=== PATIENT | male | born 1940 | race Hispanic/Latino ===

== ENCOUNTER → 2018-10-04 | Outpatient (CLI) | payer OTHER ==
[~2018-10-04] MED LIST: LACT10SO PO; MIDO10TA PO; SIMV40TA59 PO
== END | disposition home or self-care (01) ==
LOC: RAH 12:10
PROVIDERS: ATTEND Internal Medicine
DX: J44.9 Chronic obstructive pulmonary disease, unspecified (principal); M47.895 Other spondylosis, thoracolumbar region; J47.9 Bronchiectasis, uncomplicated; J84.10 Pulmonary fibrosis, unspecified; I51.7 Cardiomegaly; Z91.81 History of falling; Z72.89 Other problems related to lifestyle
CPT/HCPCS: 71101

== ENCOUNTER → 2018-12-21 | Outpatient (CLI) | payer OTHER | END | disposition home or self-care (01) | LOC: RAH 13:15 | PROVIDERS: ATTEND Internal Medicine | DX: M47.816 Spondylosis without myelopathy or radiculopathy, lumbar region (principal); M43.5X6 Other recurrent vertebral dislocation, lumbar region | CPT/HCPCS: 72100; 72202 ==

== ENCOUNTER 2020-02-20 14:01 | Inpatient (IN) | payer OTHER ==
[~2020-02-20] VITALS: Ht 167.6 cm; Wt 63.9 kg
[2020-02-20 14:35] LABS: BASOPHILS % (AUTO) 0.1 % (0.0-5.0); EOSINOPHILS % (AUTO) 0.1 % (0.0-8.0); HEMATOCRIT 37.7 % (42-54); LYMPHOCYTES % (AUTO) 9.6 % (21.0-51.0); MEAN CORPUSCULAR HEMOGLOBIN 32.2 pg (27.0-33.0); MEAN CORPUSCULAR HGB CONC 33.2 g/dL (32.0-36.0); MEAN CORPUSCULAR VOLUME 97.2 fL (79-99); MONOCYTES % (AUTO) 8.6 % (3.0-13.0); NEUTROPHILS % (AUTO) 81.1 % (40.0-77.0); PLATELET COUNT (AUTO) 133 K/uL (130-400); RED BLOOD CELL COUNT(AUTO) 3.88 MIL/uL (4.50-6.20); RED CELL DISTRIBUTION WIDTH 13.8 % (11.0-15.5); WHITE BLOOD COUNT (AUTO) 11.1 K/uL (4.8-10.8)
[2020-02-20 14:46] LABS: POTASSIUM 3.9 mmol/L (3.5-5.1)
[2020-02-20 14:47] LABS: PARTIAL THROMBOPLASTIN TIME 23.6 SEC (26.3-35.5)
[2020-02-20 14:50] LABS: ALBUMIN 3.8 g/dL (3.5-5.0); BILIRUBIN,TOTAL 0.9 mg/dL (0.2-1.0)
[2020-02-20 14:56] LABS: INR 0.96 (0.85-1.15); PROTHROMBIN TIME 10.4 SEC (9.6-11.6)
[2020-02-20 15:42] LABS: APPEARANCE,URINE Clear (CLEAR); BILIRUBIN,URINE Negative (NEGATIVE); COLOR,URINE Dark Yellow (YELLOW); GLUCOSE, URINE (UA) Negative (NEGATIVE); KETONES,URINE Negative (NEGATIVE); LEUKOCYTE ESTERASE ,URINE Negative (NEGATIVE); NITRATE,URINE Negative (NEGATIVE); OCCULT BLOOD,URINE Moderate (NEGATIVE); PH,URINE 5.5 (5.0-8.0); PROTEIN,URINE POS 1+ mg/dL (NEGATIVE)
[2020-02-20] MEDS ORDERED: LORAZEPAM 2 MG/ML 1 ML VIAL ONE (16:06)
[2020-02-20 16:16] LABS: BACTERIA,URINE Rare /HPF (None Seen); MUCUS,URINE Few LPF (None Seen); SQUAMOUS EPITHELIAL CELL,UR Rare /HPF (0-2); WBC,URINE 0-1 /HPF (0-1)
[2020-02-20] MEDS ORDERED: ZOSYN 3.375GM+NS 50ML 50 ML IV ONE (16:42)
[2020-02-20] MEDS ORDERED: MORPHINE SULFATE 2 MG/ML 1ML SYG ONE (18:27)
[2020-02-20] MEDS: SODIUM CHLORIDE 0.9% 1000ML 1,000 ML IV SCH (19:54)
[2020-02-20] MEDS ORDERED: MORPHINE SULFATE 2 MG/ML 1ML SYG IV PRN (20:00)
[2020-02-20] MEDS ORDERED: HYDRALAZINE HCL 20 MG/ML VIAL IV PRN (20:00)
[2020-02-20] MEDS ORDERED: ACETAMINOPHEN 325 MG TAB PO PRN ×2 (20:00)
[2020-02-20] MEDS ORDERED: ONDANSETRON HCL 4 MG/2 ML VIAL IV PRN (20:00)
[2020-02-20] MEDS ORDERED: FAMOTIDINE/PF 20 MG/2 ML VIAL IV ONE (21:37)
[2020-02-20 22:38] LABS: % IRON SATURATION 5.5 % (30-44)
[2020-02-20] MEDS ORDERED: ACETAMINOPHEN 650 MG SUPPOSITORY RC ONE (22:44)
[2020-02-20 23:35] VITALS: BP 97/48
[2020-02-20] MEDS: FAMOTIDINE/PF 20 MG/2 ML VIAL IV SCH (23:51)
[2020-02-20] MEDS: ZOSYN 3.375GM+NS 50ML 50 ML IV SCH (23:52)
[2020-02-21] MEDS ORDERED: ACETAMINOPHEN 650 MG SUPPOSITORY RC PRN (01:15)
[2020-02-21 04:00] VITALS: BP 139/66
[2020-02-21 04:10] LABS: BASOPHILS % (AUTO) 0.1 % (0.0-5.0); EOSINOPHILS % (AUTO) 0.1 % (0.0-8.0); HEMATOCRIT 35.7 % (42-54); MEAN CORPUSCULAR HEMOGLOBIN 31.7 pg (27.0-33.0); MEAN CORPUSCULAR HGB CONC 32.5 g/dL (32.0-36.0); MEAN CORPUSCULAR VOLUME 97.5 fL (79-99); MONOCYTES % (AUTO) 9.7 % (3.0-13.0); NEUTROPHILS % (AUTO) 80.6 % (40.0-77.0); PLATELET COUNT (AUTO) 143 K/uL (130-400); RED BLOOD CELL COUNT(AUTO) 3.66 MIL/uL (4.50-6.20); RED CELL DISTRIBUTION WIDTH 13.8 % (11.0-15.5); WHITE BLOOD COUNT (AUTO) 13.6 K/uL (4.8-10.8)
[2020-02-21 04:37] LABS: ALBUMIN 3.5 g/dL (3.5-5.0); BILIRUBIN,TOTAL 0.8 mg/dL (0.2-1.0); POTASSIUM 3.6 mmol/L (3.5-5.1); TOTAL PROTEIN, SERUM 6.5 g/dL (6.0-8.3)
[2020-02-21] MEDS: ZOSYN 3.375GM+NS 50ML 50 ML IV SCH ×3 (05:00→20:01)
[2020-02-21 08:11] VITALS: BP 97/65
[2020-02-21] MEDS ORDERED: OMEP20TA25 PO (08:37)
[2020-02-21] MEDS ORDERED: MIDO10TA PO (08:37)
[2020-02-21] MEDS ORDERED: DULO20CA18 PO (08:39)
[2020-02-21] MEDS ORDERED: TRAZ-185 PO (08:39)
[2020-02-21] MEDS ORDERED: MEMA5TAB7 PO (08:42)
[2020-02-21] MEDS ORDERED: NITR0.4T SL (08:42)
[2020-02-21] MEDS ORDERED: BUSP10TA3 PO (08:42)
[2020-02-21] MEDS ORDERED: ACETAMINOPHEN PO (08:42)
[2020-02-21] MEDS ORDERED: TERB30CR8 TP (08:44)
[2020-02-21] MEDS: FAMOTIDINE/PF 20 MG/2 ML VIAL IV SCH (10:06)
[2020-02-21 11:00] VITALS: BP 109/39
--- NOTE | 2020-02-21 13:29 | NUR ---
INITIAL SW spoke with patient's granddaughter, Daniela Lamar, [phone]. Patient lives with spouse and granddaughter. No home health but has PHC with [facility] X 29 hours a week. Granddaughter and grandson are providers. DME: shower chair. Patient needs assistance with ADL's and does not drive. Patient suffers from dementia. PCP is Dr. Mone Valentine. Pharmacy is [facility] located in [place]. DCP is home. Addendum: 02/21/20 at 1332 by ELVI EMMANUEL SS Amended: Links added.
[2020-02-21] MEDS: SODIUM CHLORIDE 0.9% 1000ML 1,000 ML IV SCH (15:54)
[2020-02-21 16:00] VITALS: BP 141/72
[2020-02-21 20:28] VITALS: BP 120/86
[2020-02-22] VITALS (24 sets, daily range): BP systolic 93–189; BP diastolic 54–86
[2020-02-22 04:05] LABS: HEMATOCRIT 35.7 % (42-54); MEAN CORPUSCULAR HEMOGLOBIN 32.4 pg (27.0-33.0); MEAN CORPUSCULAR HGB CONC 33.3 g/dL (32.0-36.0); MEAN CORPUSCULAR VOLUME 97.3 fL (79-99); PLATELET COUNT (AUTO) 141 K/uL (130-400); RED BLOOD CELL COUNT(AUTO) 3.67 MIL/uL (4.50-6.20); RED CELL DISTRIBUTION WIDTH 13.2 % (11.0-15.5); WHITE BLOOD COUNT (AUTO) 9.1 K/uL (4.8-10.8)
[2020-02-22 04:17] LABS: ALBUMIN 3.3 g/dL (3.5-5.0); BILIRUBIN,DIRECT 0.3 mg/dL (0.0-0.3); BILIRUBIN,TOTAL 0.9 mg/dL (0.2-1.0); CREATININE 0.9 mg/dL (0.5-1.5); POTASSIUM 4.2 mmol/L (3.5-5.1); TOTAL PROTEIN, SERUM 6.4 g/dL (6.0-8.3)
[2020-02-22] MEDS: ZOSYN 3.375GM+NS 50ML 50 ML IV SCH ×3 (05:54→20:25)
--- NOTE | 2020-02-22 08:45 | NUR ---
obtain telephone consent spoke with Daniela Lamar
--- NOTE | 2020-02-22 09:00 | NUR ---
Spoke with Dr. Valentine re; med clearance states patient is cleared from my standpoint for surgery lap sandra.
[2020-02-22] MEDS: FAMOTIDINE/PF 20 MG/2 ML VIAL IV SCH (10:40)
[2020-02-22] MEDS: SODIUM CHLORIDE 0.9% 1000ML 1,000 ML IV SCH ×2 (10:40→13:37)
--- NOTE | 2020-02-22 11:49 | NUR ---
Spoke with Dr. Eric edgar; Med clearance states okay then add patient to my list of surgery today.
--- NOTE | 2020-02-22 11:51 | NUR ---
order faxed spoke with Deyvi for OR
[2020-02-22] MEDS ORDERED: OXYTOCIN 10 USP UNITS/ML ONE (13:55)
[2020-02-22] MEDS ORDERED: SUCCINYLCHOLINE 200MG/10ML SYR ONE (13:55)
[2020-02-22] MEDS ORDERED: LIDOCAINE PF 2% 5ML ABBOJECT ONE (13:55)
[2020-02-22] MEDS ORDERED: ROCURONIUM 10MG/1ML SYR 10 MG/ML ML ONE (13:56)
[2020-02-22] MEDS ORDERED: PROPOFOL 10 MG/ML 20ML VIAL IV ONE (13:56)
[2020-02-22] MEDS ORDERED: HYDRALAZINE HCL 20 MG/ML VIAL IV PRN (14:00)
[2020-02-22] MEDS ORDERED: EPHEDRINE SULFATE 50 MG/ML AMPULE ONE (14:09)
[2020-02-22] MEDS ORDERED: BUPIVACAINE/PF 0.25% 30ML VIAL IJ ONE (14:16)
[2020-02-22] MEDS ORDERED: GLYCOPYRROLATE 1 MG/5 ML SYRINGE ONE (14:43)
[2020-02-22 14:48] LABS: ABG HCO3 20.9 mmol/L (21.0-28.0); ABG OXYGEN SATURATION 99.3 % (95.0-99.0); ABG PCO2 53 mmHg (35-48)
[2020-02-22] MEDS ORDERED: KETOROLAC TROMETHAMINE 15MG/ML IV PRN (15:00)
--- NOTE | 2020-02-22 19:45 | NUR ---
ELEVATED TEMP OF 102.9; PT ICED DOWN AT THIS TIME.
[2020-02-23 03:52] VITALS: BP 128/67
[2020-02-23 04:42] LABS: BASOPHILS % (AUTO) 0.1 % (0.0-5.0); EOSINOPHILS % (AUTO) 0.2 % (0.0-8.0); HEMATOCRIT 34.9 % (42-54); LYMPHOCYTES % (AUTO) 15.7 % (21.0-51.0); MEAN CORPUSCULAR HEMOGLOBIN 32.5 pg (27.0-33.0); MEAN CORPUSCULAR HGB CONC 33.8 g/dL (32.0-36.0); MEAN CORPUSCULAR VOLUME 96.1 fL (79-99); MONOCYTES % (AUTO) 13.1 % (3.0-13.0); NEUTROPHILS % (AUTO) 70.6 % (40.0-77.0); PLATELET COUNT (AUTO) 145 K/uL (130-400); RED BLOOD CELL COUNT(AUTO) 3.63 MIL/uL (4.50-6.20); RED CELL DISTRIBUTION WIDTH 13.2 % (11.0-15.5); WHITE BLOOD COUNT (AUTO) 9.2 K/uL (4.8-10.8)
[2020-02-23 05:04] LABS: ALBUMIN 2.9 g/dL (3.5-5.0); BILIRUBIN,TOTAL 0.8 mg/dL (0.2-1.0); CREATININE 0.9 mg/dL (0.5-1.5); POTASSIUM 3.7 mmol/L (3.5-5.1)
[2020-02-23] MEDS: ZOSYN 3.375GM+NS 50ML 50 ML IV SCH ×3 (05:17→21:37)
[2020-02-23 07:27] VITALS: BP 106/80
[2020-02-23 11:20] VITALS: BP 99/57
[2020-02-23] MEDS: FAMOTIDINE/PF 20 MG/2 ML VIAL IV SCH (11:46)
[2020-02-23] MEDS: SODIUM CHLORIDE 0.9% 1000ML 1,000 ML IV SCH (11:47)
[2020-02-23 15:39] VITALS: BP 145/76
--- NOTE | 2020-02-23 16:31 | NUR ---
HNR: Spoke john Villalobos(covering for HNR) states did not receive clinical. Clinical refaxed at this time. Spoke w Nurse Sheffield-states COVID form pending Md signature.
[2020-02-23 20:01] VITALS: BP 141/71
[2020-02-23 23:28] VITALS: BP 135/78
[2020-02-24 03:45] VITALS: BP 138/80
[2020-02-24 04:28] LABS: BASOPHILS % (AUTO) 0.2 % (0.0-5.0); EOSINOPHILS % (AUTO) 1.6 % (0.0-8.0); HEMATOCRIT 34.5 % (42-54); LYMPHOCYTES % (AUTO) 18.6 % (21.0-51.0); MEAN CORPUSCULAR HEMOGLOBIN 32.7 pg (27.0-33.0); MEAN CORPUSCULAR HGB CONC 34.5 g/dL (32.0-36.0); MEAN CORPUSCULAR VOLUME 94.8 fL (79-99); MONOCYTES % (AUTO) 10.3 % (3.0-13.0); NEUTROPHILS % (AUTO) 68.8 % (40.0-77.0); PLATELET COUNT (AUTO) 134 K/uL (130-400); RED BLOOD CELL COUNT(AUTO) 3.64 MIL/uL (4.50-6.20); RED CELL DISTRIBUTION WIDTH 13.2 % (11.0-15.5); WHITE BLOOD COUNT (AUTO) 8.2 K/uL (4.8-10.8)
[2020-02-24 04:45] LABS: BILIRUBIN,DIRECT 0.3 mg/dL (0.0-0.3); CREATININE 0.7 mg/dL (0.5-1.5); TOTAL PROTEIN, SERUM 5.9 g/dL (6.0-8.3)
[2020-02-24] MEDS ORDERED: POTASSIUM CHLORIDE 10MEQ/100ML 100 ML IV PRN (05:00)
[2020-02-24] MEDS ORDERED: POTASSIUM CHLORIDE 20 MEQ ERTAB PO PRN (05:00)
[2020-02-24] MEDS: ZOSYN 3.375GM+NS 50ML 50 ML IV SCH (05:30)
[2020-02-24] MEDS: LIDOCAINE HCL-MPF 1% 2ML VIAL IJ PRN (05:33)
[2020-02-24] MEDS: POTASSIUM CHLORIDE 10MEQ/100ML 100 ML IV PRN (05:33)
[2020-02-24] MEDS: SODIUM CHLORIDE 0.9% 1000ML 1,000 ML IV SCH (05:34)
[2020-02-24 07:44] VITALS: BP 124/70
[2020-02-24] MEDS: FAMOTIDINE/PF 20 MG/2 ML VIAL IV SCH (08:52)
--- NOTE | 2020-02-24 11:00 | NUR ---
cm note referral refaxed to [facility], per [place] woodward rep at [facility] states did not receive yesterday either. referral scanned to facility. and now [facility] has received, faxed referral, passar, and covid required form. spoke to dr black, and updated that per Jarocho woodward, no approval today, possible acceptance tomorrow. verbalizes understanding.
[2020-02-24 11:06] VITALS: BP 137/78
[2020-02-24] MEDS ORDERED: LEVO500T2 PO (11:36)
[2020-02-24] MEDS ORDERED: ROSU5TAB12 PO (11:36)
[2020-02-24] MEDS ORDERED: BUSPIRONE HCL 5 MG TABLET PO PRN (11:45)
[2020-02-24] MEDS ORDERED: TRAMADOL /APAP 37.5MG/325MG TAB PO PRN (11:45)
[2020-02-24] MEDS: LEVOFLOXACIN 500 MG TABLET PO SCH (11:48)
[2020-02-24 16:23] VITALS: BP 129/94
[2020-02-24 20:29] VITALS: BP 139/72
[2020-02-24] MEDS: POTASSIUM CHLORIDE 20 MEQ ERTAB PO SCH (21:34)
[2020-02-24 23:38] VITALS: BP 124/77
[2020-02-25 03:39] VITALS: BP 133/88
[2020-02-25 04:02] LABS: BASOPHILS % (AUTO) 0.3 % (0.0-5.0); EOSINOPHILS % (AUTO) 1.9 % (0.0-8.0); HEMATOCRIT 30.9 % (42-54); LYMPHOCYTES % (AUTO) 22.6 % (21.0-51.0); MEAN CORPUSCULAR HEMOGLOBIN 32.6 pg (27.0-33.0); MEAN CORPUSCULAR HGB CONC 34.3 g/dL (32.0-36.0); MEAN CORPUSCULAR VOLUME 95.1 fL (79-99); MONOCYTES % (AUTO) 9.4 % (3.0-13.0); NEUTROPHILS % (AUTO) 65.3 % (40.0-77.0); PLATELET COUNT (AUTO) 153 K/uL (130-400); RED BLOOD CELL COUNT(AUTO) 3.25 MIL/uL (4.50-6.20); RED CELL DISTRIBUTION WIDTH 13.2 % (11.0-15.5); WHITE BLOOD COUNT (AUTO) 7.8 K/uL (4.8-10.8)
[2020-02-25 04:40] LABS: POTASSIUM 2.9 mmol/L (3.5-5.1)
[2020-02-25] MEDS: LIDOCAINE HCL-MPF 1% 2ML VIAL IJ PRN (04:52)
[2020-02-25] MEDS: POTASSIUM CHLORIDE 10MEQ/100ML 100 ML IV PRN (04:52)
[2020-02-25 07:30] VITALS: BP 175/111
--- NOTE | 2020-02-25 09:28 | NUR ---
call ct scan to notify them that patient ate some corn flakes. Addendum: 02/25/20 at 0930 by BRADLEY VEGA RN RN disregard the notes.
[2020-02-25] MEDS: PANTOPRAZOLE SODIUM 40 MG TABLET.DR PO SCH (09:48)
[2020-02-25] MEDS: LEVOFLOXACIN 500 MG TABLET PO SCH (09:48)
[2020-02-25] MEDS: POTASSIUM CHLORIDE 20 MEQ ERTAB PO SCH ×2 (09:48→21:00)
[2020-02-25] MEDS ORDERED: POTA-81 PO (10:14)
[2020-02-25] MEDS ORDERED: MIDO10TA PO (10:14)
[2020-02-25] MEDS ORDERED: CLONIDINE HCL 0.1 MG TABLET PO PRN (10:15)
[2020-02-25] MEDS: POTASSIUM CHLORIDE 20 MEQ/100 ML BAG IV SCH (10:31)
--- NOTE | 2020-02-25 10:58 | NUR ---
NOTED THE DISCHARGE SUMMARY- NO IV ABX, CALL RECD FROM REYES AT [facility], INQUIRY RE: PLAN OF CARE AT [facility]- CALL TO , DR. ARMENDARIZ STATED NO IV ABX. RELAYED TO REYES VIA TEXT, AWAITING CALL BACK Addendum: 02/25/20 at 1103 by JONA STALLINGS RN CM Amended: Links added.
[2020-02-25 11:00] VITALS: BP 92/47
--- NOTE | 2020-02-25 13:30 | NUR ---
PT DECLINED BY REGEN- OTHER PLAN SOUGHT RECD TEXT FROM [facility] REP ANGE VENEGAS THAT PATIENT IS DECLINED BY SUJATA AT [facility] AND AT [facility] BASED ONTHE INTAKE AND REPORT OF BEHAVOIRS BY FAMILY, PATIENT NEEDS SECURE UNIT- AND THEIR SECURE UNITS ARE FULL. NO AUTH SUBMITTED TO [facility], PATIENT WAS DECLINED BY [facility] CALL TO FAMILY SAM[facility] - [facility] WITH PT Addendum: 02/26/20 at 0928 by JONA STALILNGS RN CM Amended: Links added.
[2020-02-25 16:00] VITALS: BP 135/85
--- NOTE | 2020-02-25 16:28 | NUR ---
CALL REPORT TO ELENA VIDAL LVN OF [facility].
--- NOTE | 2020-02-25 18:00 | NUR ---
CHANGE IN DC PLANS- SEE NOTE THIS CM HELP PODIATRIC TECHNICIAN TO BRING PATIENT DOWN TO CAR FOR FAMILY PROGRAM DIRECTOR [employer] FAMILY UNABLE TO TRANSFER INTO VEHCILE- REQUEST AMBULANCE TRANSFER CM DID AMBULANCE TRANSFER- AND FAXED THEN CALL FROM GRANDDAUGHTER- STATES CANNOT TAKE PATIENT HOME , WANTS ALTERNATE PLACEMENT ADVISED WILL DISCUSS WITH DR. ARMENDARIZ IN AM, WILL FIND PLACEMENT FOR PATIENT UPDATED PRIMARY RN WHO CONTACTED MD. Addendum: 02/26/20 at 0924 by JONA STALLINGS RN CM Amended: Links added.
[2020-02-25 19:36] VITALS: BP 154/97
[2020-02-25 23:27] VITALS: BP 153/86
[2020-02-26] MEDS: POTASSIUM CHLORIDE 20 MEQ/100 ML BAG IV SCH (00:39)
--- NOTE | 2020-02-26 02:00 | NUR ---
NEW IV 22G LFA. PT HAD NO IV, WAS TAKEN OFF DUE TO POSSIBLE DC DURING THE DAY. PT WAS ALSO PLACED ON TELE AT 1999. NO TELE PACK HAD BEEN PLACED WHEN PT CAME BACK TO ROOM FROM POSSIBLE DC.
[2020-02-26 04:00] VITALS: BP 153/78
[2020-02-26 08:00] VITALS: BP 147/65
--- NOTE | 2020-02-26 08:00 | NUR ---
SPOKE TO DR. MARCELLO OLIVER CHANGE IN DC PLANS POSS REFERRAL TO [facility] FOR LONG TERM- PT, ABX, SPEECH- CALL TO KALI, KAYLA CAN REC IF MEETS CRITERIA, CALL TO AILYN GRACIA, FOR NGUYỄN- VOICE MAIL- AWAITING CALL BACK- WILL SEND PKT WHEN NGUYỄN RECD Addendum: 02/26/20 at 0920 by JONA STALLINGS RN CM Amended: Links added.
[2020-02-26] MEDS ORDERED: LEVO500P29 IV (08:19)
[2020-02-26 08:35] LABS: HEMATOCRIT 34.9 % (42-54); MEAN CORPUSCULAR HEMOGLOBIN 32.3 pg (27.0-33.0); MEAN CORPUSCULAR HGB CONC 34.4 g/dL (32.0-36.0); MEAN CORPUSCULAR VOLUME 93.8 fL (79-99); PLATELET COUNT (AUTO) 189 K/uL (130-400); RED BLOOD CELL COUNT(AUTO) 3.72 MIL/uL (4.50-6.20); RED CELL DISTRIBUTION WIDTH 13.4 % (11.0-15.5); WHITE BLOOD COUNT (AUTO) 14.3 K/uL (4.8-10.8)
[2020-02-26] MEDS: POTASSIUM CHLORIDE 20 MEQ ERTAB PO SCH ×2 (09:00→19:25)
[2020-02-26] MEDS: PANTOPRAZOLE SODIUM 40 MG TABLET.DR PO SCH (09:00)
--- NOTE | 2020-02-26 09:20 | NUR ---
DYSPHAGIA EVAL COMPLETED. +S/S OF ASPIRATION. RECOMMEND NPO PENDING MBSS. EQUAL OPPORTUNITY SPECIALIST COORDINATED WITH NURSE VIVIANA. Addendum: 02/26/[address] [place] [place] Amended: Links added.
[2020-02-26 09:25] LABS: CREATININE 0.8 mg/dL (0.5-1.5); POTASSIUM 3.6 mmol/L (3.5-5.1)
[2020-02-26 11:00] VITALS: BP 120/61
[2020-02-26] MEDS: LEVOFLOXACIN 500 MG/D5W 100 ML 100 ML IV SCH (11:01)
[2020-02-26 16:00] VITALS: BP 100/68
--- NOTE | 2020-02-26 17:03 | NUR ---
Nutrition Intervention: Nutrition screen based on LOS x 6 days. Pt. S/P lap sandra(02/22/20). Pt. S/P dysphagia evaluation on 02/26/2020- LEATHER CASE FINISHER rec. NPO status pending MBSS. Pt. on GI Soft [place] diet with <25% p.o. intake. Spoke with Nurse Meyer regarding placing pt. NPO until MBSS complete. Nurse Meyer stated MBSS is scheduled for tomorrow. Labs reviewed(BUN 29, BG 155, AST/ALT 110/150, Alk Phos 147, Alb 3.0). SR-13, abd. puncture. LBM: 02/21/2020. BMI: 25.7, normal for age. Recommendations: 1) Rec. NPO status until MBSS complete. 2) Continue to monitor pt's nutritional status. 3) Consult RD as nutrition concerns arise. Addendum: 02/26/20 at [address] Amended: Links added.
[2020-02-26 20:35] VITALS: BP 127/61
[2020-02-27] VITALS (7 sets, daily range): BP systolic 95–145; BP diastolic 61–98
--- NOTE | 2020-02-27 07:45 | NUR ---
note PATIENT HAS BEEN STABLE THROUGHOUT THE DAY. HE CAME IN FOR CHOLECYSTITIS UNDERWENT LAP SAL 4-17. DRESSINGS TO ABDOMEN D/I. APPEARS COMFORTABLE. DOES NOT RESPOND TO VERBAL COMMANDS. HE IS GOING FOR MBSS FOR C/O COUGH WITH PO INTAKE. CANNOT SWALLOW PILLS OR FOOD.
[2020-02-27] MEDS: POTASSIUM CHLORIDE 20 MEQ ERTAB PO SCH (08:12)
[2020-02-27] MEDS: POTASSIUM CHLORIDE 20 MEQ/100 ML BAG IV SCH (08:12)
[2020-02-27] MEDS: PANTOPRAZOLE SODIUM 40 MG TABLET.DR PO SCH (08:12)
[2020-02-27 09:11] LABS: HEMATOCRIT 34.1 % (42-54); MEAN CORPUSCULAR HEMOGLOBIN 32.7 pg (27.0-33.0); MEAN CORPUSCULAR VOLUME 96.1 fL (79-99); PLATELET COUNT (AUTO) 197 K/uL (130-400); RED BLOOD CELL COUNT(AUTO) 3.55 MIL/uL (4.50-6.20); RED CELL DISTRIBUTION WIDTH 13.6 % (11.0-15.5); WHITE BLOOD COUNT (AUTO) 15.4 K/uL (4.8-10.8)
[2020-02-27] MEDS: LEVOFLOXACIN 500 MG/D5W 100 ML 100 ML IV SCH (09:26)
--- NOTE | 2020-02-27 11:30 | NUR ---
MBSS COMPLETED. RECOMMEND GOLF COURSE KEEPER ALTERNATE MEANS OF NUTRITION/HYDRATION. Pt PRESENTS WITH SEVERE TO PROFOUND ORAL AND SEVERE PHARYNGEAL DYSPHAGIA. PIPE WELDER COORDINATED CARE AND RECOMMENDATIONS WITH NURSE. Addendum: 02/27/[address] [place] [place] Amended: Links added.
[2020-02-27] MEDS: SODIUM CHLORIDE 0.9% 1000ML 1,000 ML IV SCH (15:15)
--- NOTE | 2020-02-27 17:45 | NUR ---
NOTE DR ARMENDARIZ CAME BY AND PRAMOD COHEN WITH DR LEBLANC. PATIENT FAILED MBSS AND NEEDS PEG PLACEMENT. DR FRIEND WILL BE DOING PEG PLACEMENT TOMORROW AT 0900. NGT PLACED FOR NOW STARTED ON GLUCERNA 1.5 AT 25CC/HR AND IVF STARTED AT 50CC/HR SALINE PER DR ARMENDARIZ'S ORDERS. WILL OBTAIN CONSENT FOR PROCEDURE. DR ARMENDARIZ ALREADY SPOKE TO FAMILY AND THEY ARE IN AGREEMENT.
[2020-02-27] MEDS: ZOSYN 3.375GM+NS 50ML 50 ML IV SCH (17:59)
[2020-02-28] VITALS (20 sets, daily range): BP systolic 92–147; BP diastolic 40–76
[2020-02-28] MEDS: ZOSYN 3.375GM+NS 50ML 50 ML IV SCH ×3 (01:14→17:16)
[2020-02-28 04:00] LABS: HEMATOCRIT 32.5 % (42-54); MEAN CORPUSCULAR HEMOGLOBIN 31.9 pg (27.0-33.0); MEAN CORPUSCULAR HGB CONC 33.2 g/dL (32.0-36.0); MEAN CORPUSCULAR VOLUME 95.9 fL (79-99); PLATELET COUNT (AUTO) 201 K/uL (130-400); RED BLOOD CELL COUNT(AUTO) 3.39 MIL/uL (4.50-6.20); RED CELL DISTRIBUTION WIDTH 13.7 % (11.0-15.5); WHITE BLOOD COUNT (AUTO) 14.1 K/uL (4.8-10.8)
[2020-02-28 04:33] LABS: ALBUMIN 2.6 g/dL (3.5-5.0); BILIRUBIN,DIRECT 0.2 mg/dL (0.0-0.3); BILIRUBIN,TOTAL 0.6 mg/dL (0.2-1.0); CREATININE 0.7 mg/dL (0.5-1.5); POTASSIUM 3.2 mmol/L (3.5-5.1); TOTAL PROTEIN, SERUM 5.5 g/dL (6.0-8.3)
[2020-02-28] MEDS: FAMOTIDINE 20MG TAB 20 MG TAB PEG SCH (08:15)
[2020-02-28] MEDS: POTASSIUM CHLORIDE 20 MEQ/100 ML BAG IV SCH (08:15)
[2020-02-28] MEDS: POTASSIUM CHLORIDE 10% ELIXIR 20 MEQ/15 ML UDCUP PO SCH (08:15)
[2020-02-28] MEDS ORDERED: PROPOFOL 10 MG/ML 20ML VIAL IV ONE (09:09)
[2020-02-28] MEDS ORDERED: LIDOCAINE HCL 1% 20 ML VIAL ONE (09:09)
[2020-02-28] MEDS ORDERED: EPHEDRINE SULFATE 50 MG/ML AMPULE ONE (09:22)
[2020-02-28] MEDS: SODIUM CHLORIDE 0.9% 1000ML 1,000 ML IV SCH ×2 (10:44→21:42)
--- NOTE | 2020-02-28 11:00 | NUR ---
NOTE UNDERWENT PEG PLACEMENT WITH DR FRIEND. TOLERATED PROCEDURE. CONTINUES TO BE SLEEPY, AROUSES TO PHYSICAL CONTACT. PEG SITE DRESSING D/I. HAS ABDOMINAL BINDER AND AT TIMES FEELS THE PRESSURE FROM BINDER AND TRIES TO REACH FOR SOMETHING BUT IS NOT TOO DETERMINED TO MESS WITH THINGS. DOES NOT ATTEMPT TO MESS WITH IV LINES EITHER. WILL START FEEDINGS SOMETIME AFTER 1400. NEEDS TO BE WITHOUT ANYTHING PER PEG FOR NOW. CONTINUES WITH IVF AT 50CC/HR. CASE TYLOR MADE AWARE OF PEG PLACED. STILL PENDING APPROVAL AT [facility].
--- NOTE | 2020-02-28 13:51 | NUR ---
RD FOLLOW UP Pt to be initiated on Tube Feedings, s/p failed MBSS, s/p PEG placement. Noted LBM 02/21/20 - Recommend stool softener/laxative as medically feasible. TF Recommendations: Continuous Jevity 1.5 Initiated at 25mls/hr for five hours. Recommend advance as tolerated by 5 mL every 5 hours to goal. Goal: 55mls/hr (1980kcal, 84gm protein) Flushes: 200mL every 6 hours. Bolus Feeding recommendations included in case of discharge with tube feeding. Placed in Pt chart. RN notified. Addendum: 02/28/20 at [address] Amended: Links added.
--- NOTE | 2020-02-28 17:41 | NUR ---
ALMA DELIA Note: Tereso Seymour approval CM spoke to Estela Lopez, pt has approval. Just pending Peg notes and feeding info once available and pt tolerates. EMS arranged and faxed for tomorrow, primary nurse to call [facility] once pt ready to DC. Primary nurse aware.
[2020-02-28] MEDS: POTASSIUM CHLORIDE 10% ELIXIR 20 MEQ/15 ML UDCUP PO PRN (21:42)
[2020-02-29] MEDS: ZOSYN 3.375GM+NS 50ML 50 ML IV SCH ×2 (03:16→09:38)
[2020-02-29 03:42] LABS: BASOPHILS % (AUTO) 0.3 % (0.0-5.0); EOSINOPHILS % (AUTO) 2.8 % (0.0-8.0); HEMATOCRIT 32.1 % (42-54); LYMPHOCYTES % (AUTO) 13.3 % (21.0-51.0); MEAN CORPUSCULAR HEMOGLOBIN 32.9 pg (27.0-33.0); NEUTROPHILS % (AUTO) 74.2 % (40.0-77.0); PLATELET COUNT (AUTO) 228 K/uL (130-400); RED BLOOD CELL COUNT(AUTO) 3.31 MIL/uL (4.50-6.20); RED CELL DISTRIBUTION WIDTH 13.9 % (11.0-15.5); WHITE BLOOD COUNT (AUTO) 11.5 K/uL (4.8-10.8)
[2020-02-29 03:49] VITALS: BP 123/63
[2020-02-29 03:50] LABS: CREATININE 0.7 mg/dL (0.5-1.5); POTASSIUM 3.1 mmol/L (3.5-5.1)
[2020-02-29] MEDS: POTASSIUM CHLORIDE 10% ELIXIR 20 MEQ/15 ML UDCUP PO PRN (05:56)
[2020-02-29 08:00] VITALS: BP 116/40
[2020-02-29] MEDS: POTASSIUM CHLORIDE 10% ELIXIR 20 MEQ/15 ML UDCUP PO SCH ×2 (09:38→13:29)
[2020-02-29] MEDS: FAMOTIDINE 20MG TAB 20 MG TAB PEG SCH (09:38)
[2020-02-29 11:00] VITALS: BP 103/56
[2020-02-29] MEDS ORDERED: LACT-125 PO ×2 (11:13→11:22)
--- NOTE | 2020-02-29 15:46 | NUR ---
Report 1530 Called report to [facility] in [place] spoke with Jorge JONES gave full report, all questions answered and plan of care reviewed. Patient to be sent over via EMS today.
== END 2020-02-29 17:10 | DRG 418 ==
LOC: EDH 14:01 → EDHIP 19:54 → 4BH 23:53 → 4AH 02-27 09:07 → 4BH 02-27 09:08
PROVIDERS: ADMIT Internal Medicine; ATTEND Internal Medicine
PROC: 0FT44ZZ Resection of Gallbladder, Percutaneous Endoscopic Approach (ICD-10-PCS; principal; 2020-02-22 12:57)
PROC: 0DH63UZ Insertion of Feeding Device into Stomach, Percutaneous Approach (ICD-10-PCS; 2020-02-28)
DX: K80.00 Calculus of gallbladder with acute cholecystitis without obstruction (principal); F03.91 Unspecified dementia, unspecified severity, with behavioral disturbance; F13.20 Sedative, hypnotic or anxiolytic dependence, uncomplicated; R13.10 Dysphagia, unspecified; E86.0 Dehydration; R74.0 Nonspecific elevation of levels of transaminase and lactic acid dehydrogenase [LDH]; R29.6 Repeated falls; K82.8 Other specified diseases of gallbladder; N18.2 Chronic kidney disease, stage 2 (mild); I13.10 Hypertensive heart and chronic kidney disease without heart failure, with stage 1 through stage 4 chronic kidney disease, or unspecified chronic kidney disease; I25.10 Atherosclerotic heart disease of native coronary artery without angina pectoris; N40.0 Benign prostatic hyperplasia without lower urinary tract symptoms; E78.2 Mixed hyperlipidemia; D64.9 Anemia, unspecified; F32.9 Major depressive disorder, single episode, unspecified; I70.0 Atherosclerosis of aorta; Z51.5 Encounter for palliative care; Z66 Do not resuscitate; J44.9 Chronic obstructive pulmonary disease, unspecified; M19.90 Unspecified osteoarthritis, unspecified site; B96.1 Klebsiella pneumoniae [K. pneumoniae] as the cause of diseases classified elsewhere; I95.1 Orthostatic hypotension; D17.79 Benign lipomatous neoplasm of other sites; K21.9 Gastro-esophageal reflux disease without esophagitis; Z95.1 Presence of aortocoronary bypass graft; Z87.891 Personal history of nicotine dependence; Z79.899 Other long term (current) drug therapy; Z74.01 Bed confinement status
CPT/HCPCS: 36415; 43246; 71045; 74176; 74230; 76705; 80048; 80053; 80076; 81001; 82435; 82550; 82803; 82947; 82948; 83540; 83550; 83605; 83690; 83735; 84132; 84145; 84295; 84484; 85018; 85025; 85027; 85610; 85730; 87040; 87077; 87088; 87186; 88304; 92610; 92611; 93005; 97039; 99291; A4606; G0378; J0330; J0360; J1885; J1956; J2001; J2060; J2543; J2590; J2704; J3480; J3490; J7030

== ENCOUNTER 2020-03-15 22:23 | Emergency (ER) | payer OTHER ==
[~2020-03-15 22:23] MED LIST changes: +ACETAMINOPHEN PO; +BUSP10TA3 PO; +DULO20CA18 PO; +LACT-125 PO; -LACT10SO PO; +LEVO500P29 IV; +NITR0.4T SL; +OMEP20TA25 PO; +POTA-81 PO; +ROSU5TAB12 PO; -SIMV40TA59 PO; +TERB30CR8 TP; +TRAZ-185 PO
[2020-03-15] MEDS ORDERED: SODIUM CHLORIDE IRRIG SOLUTION 1,000 ML IR ONE (22:24)
== END 2020-03-16 | disposition home or self-care (01) ==
LOC: EDH 22:23
DX: T85.528A Displacement of other gastrointestinal prosthetic devices, implants and grafts, initial encounter (principal); E86.0 Dehydration; F03.90 Unspecified dementia, unspecified severity, without behavioral disturbance, psychotic disturbance, mood disturbance, and anxiety; I10 Essential (primary) hypertension; J44.9 Chronic obstructive pulmonary disease, unspecified; K21.9 Gastro-esophageal reflux disease without esophagitis; E78.00 Pure hypercholesterolemia, unspecified; F32.9 Major depressive disorder, single episode, unspecified; M19.90 Unspecified osteoarthritis, unspecified site; Z79.899 Other long term (current) drug therapy; Z95.1 Presence of aortocoronary bypass graft
CPT/HCPCS: 71045

== ENCOUNTER 2020-04-10 11:10 | Emergency (ER) | payer OTHER ==
[2020-04-10] MEDS ORDERED: SODIUM CHLORIDE 0.9% 1000ML 1,000 ML IV SCH (12:38)
[2020-04-10] MEDS ORDERED: ONDANSETRON HCL 4 MG/2 ML VIAL IV PRN (12:45)
[2020-04-10] MEDS ORDERED: LACTULOSE 20 GM/30 ML UDCUP PO PRN (12:45)
[2020-04-10] MEDS ORDERED: HYDRALAZINE HCL 20 MG/ML VIAL IV PRN (12:45)
[2020-04-11] MEDS ORDERED: FAMOTIDINE/PF 20 MG/2 ML VIAL IV SCH (09:00)
== END 2020-04-10 17:10 | disposition home or self-care (01) ==
LOC: EDH 11:10
DX: Z43.1 Encounter for attention to gastrostomy (principal); I25.10 Atherosclerotic heart disease of native coronary artery without angina pectoris; K21.9 Gastro-esophageal reflux disease without esophagitis; E78.00 Pure hypercholesterolemia, unspecified; I10 Essential (primary) hypertension; F32.9 Major depressive disorder, single episode, unspecified; M19.90 Unspecified osteoarthritis, unspecified site
CPT/HCPCS: 71045; 93005